=== PATIENT | male | born 1990 | race Caucasian/White ===

== ENCOUNTER 2018-06-13 22:47 | Emergency (ER) | payer MEDICAID, OTHER ==
[2018-06-14] MEDS: KETOROLAC 30 MG INJ IM (01:21)
[2018-06-14] MEDS: ONDANSETRON (ODT) 4 MG TAB ODT (01:21)
== END 2018-06-14 02:35 | disposition home or self-care (01) ==
LOC: FTE 22:47
DX: B34.9 Viral infection, unspecified (principal)
CPT/HCPCS: 87400; 96372; 99284-25